=== PATIENT | female | born 1975 | race African-American/Black ===

== ENCOUNTER 2023-04-25 08:42 | Emergency (ER) | payer OTHER, SELFPAY ==
[2023-04-25 09:45] VITALS: BP 157/94; PULSE 66; RESP 17; TEMP 36.1; O2SAT 100; BMI 33.7
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
[2023-04-25 11:28] VITALS: BP 128/79; PULSE 61; RESP 18; O2SAT 100
[2023-04-25 11:35] LABS: D Dimer High Sensitivity < 150 NG/ML
[2023-04-25] MEDS: Ketorolac Tromethamine 15 MG/ML VIAL 30 MG IM (11:59)
== END 2023-04-25 12:34 | disposition home or self-care (01) ==
PROVIDERS: Physician Assistant; Emergency Provider Emergency Medicine; PCP Internal Medicine
DX: M62.838 Other muscle spasm (principal); M79.605 Pain in left leg
CPT/HCPCS: 36415; 85379; 96372; 99283; 99284; J1885